=== PATIENT | female | born 1940 | race Caucasian/White ===

== ENCOUNTER 2017-02-12 21:13 | Observation (INO) ==
[2017-02-12 23:23] LABS: Basophils % 0.5 %; Eosinophils # 0.2 K/mcL (0.0-0.6); Eosinophils % 2.4 %; Hemoglobin 14.4 g/dL (11.5-15.4); Immature Granulocytes % 0.3 % (0-4); Immature Platelets 2.9 % (1.1-6.1); Lymphocytes # 2.8 K/mcL (0.6-4.6); Lymphocytes % 44.6 %; Mean Corpuscular HGB Conc 33.5 g/dL (31.6-35.5); Mean Corpuscular Hemoglobin 31.1 pg (28.0-33.3); Mean Corpuscular Volume 92.9 fL (83.0-100.0); Mean Platelet Volume 9.4 fL (9.4-12.4); Monocytes # 0.6 K/mcL (0.0-1.3); Neutrophils # 2.7 K/mcL (1.6-8.9); Platelet Count 254 K/mcL (140-400); Red Blood Count 4.63 M/mcL (3.82-4.97); Red Cell Distribution Width 12.2 % (11.5-14.5); Segmented Neutrophils % 43.2 %
[2017-02-12 23:34] LABS: BUN/Creatinine Ratio 15 (6-26); Blood Urea Nitrogen 12 mg/dL (7-20); Calcium 10.1 mg/dL (8.6-10.8); Carbon Dioxide 26 mEq/L (19-29); Chloride 103 mEq/L (98-109); Glucose 109 mg/dL (70-99); Osmolality,Calculated 286 (280-300); Potassium 3.9 mEq/L (3.5-4.5); Sodium 138 mEq/L (136-145); eGFR For African Americans > 60 (> 60); eGFR For Non-African Americans > 60 (> 60)
[2017-02-12] MEDS ORDERED: Ondansetron 4 MG/2 ML VIAL IVP ONE (23:35)
[2017-02-12] MEDS ORDERED: 0.9 % Sodium Chloride 1,000 ML IVC ONE (23:36)
--- NOTE | 2017-02-12 23:41 | Emergency Department Note ---
Disposition Clinical Impression: Chest pain Qualifiers: Chest pain type: unspecified Qualified Code(s): R07.9 - Chest pain, unspecified Disposition: Admitted As Inpatient Condition: Fair Referrals: Elton Bethea MD [Primary Care Provider] - Forms: ED Satisfaction Letter Time of Disposition: 01:38 Chest Pain HPI - General Chief Complaint: ED Chest Pain Stated Complaint: chest pain has pace maker Time Seen by Provider: 02/12/17 22:59 Source: patient Limitations: no limitations Vital Signs Reviewed: Yes Nursing Notes Reviewed: Yes - History of Present Illness HPI Narrative: Alert and oriented 76-year-old female presents to the emergency department for a chief complaint of chest pain, palpitations, and headache. The patient states that symptoms began at approximately 11:30 this morning. She states that symptoms began with a headache and dizziness that she describes as her typical vertiginous episodes. She states that she laid down in bed, and woke up at approximately 2:00 this afternoon, however symptoms persisted. She states that at the time of symptom onset, she also experienced episodes of palpitations, and intermittent left-sided chest pain that she describes as sharp in nature. She states this chest pain occurs at rest. During the time my exam, she is currently pain-free. He complains of associated nausea, however denies any vomiting. She denies any fever or cough. She denies any shortness of breath. She states a history of paroxysmal SVT for which she has underwent 2 ablations and has had a pacemaker placed. She states a history of migraine headaches. She states that originally, her current headache felt as her normal migraines, however she is concerned that it did not alleviate after awaking from sleep. She denies this being the worst headache of her life or has having a thunderclap type onset. She states that her headache is made worsened by loud noises. Pt complaint: chest pain Onset (ago): hour(s) (Approximately 11:30 this morning) Duration: intermittent Onset: during rest Pain Location: left chest Severity scale (1-10): 0 Quality: aching Improves with: nothing Worsens with: nothing Associated symptoms: Reports: nausea, palpitations Treatments prior to arrival chest pain: none - Related Data Home Medications Medication Instructions Recorded Confirmed Albuterol Sulfate [Albuterol 2 puff IH Q6H PRN 11/25/16 02/08/17 Inhaler] Alpha Lipoic Acid 200 mg PO DAILY 11/25/16 02/08/17 Calcium Carbonate [Calcium] 1,000 mg PO BID 11/25/16 02/08/17 Cholecalciferol (D-3) [Vitamin D] 2,000 unit PO DAILY 11/25/16 02/08/17 Docusate Sodium [Stool Softener] 100 mg PO BID 11/25/16 02/08/17 Lisinopril 2.5 mg PO DAILY 11/25/16 02/08/17 [place]-3 Fatty Acids [Fish Oil] 1,000 mg PO TID 11/25/16 02/08/17 Vitamin B Complex [B Complex] 1 each PO DAILY 11/25/16 02/08/17 Warfarin [Coumadin] 7.5 mg PO 1800 11/25/16 02/08/17 Acetaminophen [Tylenol] 1,000 mg PO Q6HR PRN 01/18/17 02/08/17 Phytonadione [Vitamin K] 100 mcg PO DAILY 01/18/17 02/08/17 Allergies Allergy/AdvReac Type Severity Reaction Status Date / Time droperidol [From Inapsine] AdvReac Anxiety Verified 02/12/17 21:28 Zxvgqtk-Ogg-Ahm Reductase AdvReac Dizziness Verified 02/12/17 21:28 Inhibitor [Statins] beta blockers AdvReac Severe Hypotension Uncoded 02/12/17 21:28 Constitutional: Denies: fever, chills, weakness, weight change Eyes: Denies: eye pain, eye discharge, vision change ENT ED: Denies: ear pain, throat pain, dental pain, hearing loss, epistaxis, congestion, dysphagia Cardiovascular: Reports: as per HPI, chest pain, palpitations. Denies: dyspnea on exertion, edema, syncope Respiratory: Denies: cough, dyspnea, wheezes, hemoptysis, stridor Gastrointestinal: Reports: as per HPI, nausea. Denies: abdominal pain, vomiting , diarrhea, constipation, hematemesis, melena, hematochezia Genitourinary: Denies: dysuria, frequency, hematuria, discharge Musculoskeletal: Denies: back pain, neck pain, arthralgia, myalgia Integumentary: Denies: rash, abrasion, lesions Neurological: Reports: as per HPI, headache, other (Dizziness). Denies: weakness, numbness, paresthesias, confusion, abnormal gait, vertigo Psychiatric: Denies: anxiety, depression, suicidal thoughts, homicidal thoughts , auditory hallucinations, visual hallucinations Endocrine: Denies: fatigue Hematological/Lymphatic: Denies: easy bleeding, easy bruising Allergic/Immunologic: Denies: facial swelling, urticaria Chest Pain PMH - Past Medical History Medical history: Reports: cancer, cardiomyopathy, GERD, hyperlipidemia, hypertension, other Psychiatric history: Reports: anxiety OIM CONSULTANT history: Reports: no OIM CONSULTANT history - Social History Smoking Status: Never smoker Alcohol use: Reports: rarely Drug use: Reports: none Physical Exam - General Limitations: no limitations General appearance: alert - Head Head exam: atraumatic, normocephalic, normal inspection - Eye Eye exam: Present: normal appearance, PERRL, EOMI. Absent: nystagmus - ENT ENT exam: mucous membranes moist - Neck Neck exam: Present: normal inspection, full ROM, trachea midline. Absent: lymphadenopathy - Chest Chest inspection: Present: normal inspection, symmetric chest wall rise - Respiratory Respiratory exam: Present: normal lung sounds bilaterally. Absent: respiratory distress, wheezes, stridor, accessory muscle use, prolonged expiratory phase - Cardiovascular Cardiovascular exam: Present: regular rate, normal rhythm, normal heart sounds - Abdominal Exam Abdominal exam: Present: soft, Non-Tender, normal bowel sounds. Absent: tenderness, distention, guarding, rebound, rigidity - Extremities Exam Extremities exam: Present: normal inspection, full ROM. Absent: tenderness, pedal edema - Expanded Neurological Exam Patient oriented to: Present: person, place, time Speech: Present: fluid speech Cranial nerves: EOM function (II, III, IV, ): Normal, facial sensation (V): Normal, facial palsy (VII): Normal, spinal accessory function (XI): Normal, tongue deviation (XII): Normal Motor strength - LUE: 5/5 Motor strength - RUE: 5/5 Motor strength - LLE: 5/5 Motor strength - RLE: 5/5 Upper motor neuron exam: iwona neglect: Absent bilaterally, pronator drift: Absent bilaterally, sensory extinction: Absent bilaterally Sensory exam upper extremity: light touch: Normal Sensory exam lower extremity: light touch: Normal, 2 point discrimination: Normal Coma Scale Eye Opening: Spontaneous Coma Scale Motor Response: Obeys Commands Coma Scale Verbal Response: Oriented Coma Scale Total: 15 - Psychiatric Psychiatric exam: Present: normal affect, normal mood - Skin Skin exam: Present: warm, dry, intact, normal color. Absent: rash, cyanosis, diaphoresis, erythema, pallor, mottled Course Course Narrative: I have discussed this patient's case with Dr. Amezquita. Dr. Amezquita has had a face- to-face evaluation with the patient and recommends admission to the hospitalist service for further evaluation of her left-sided chest pain. The patient has been made aware of this plan and is in agreement. 0137: I spoke with Dr. Durand. Dr. Durand accepts the patient for admission under the hospitalist service. Vital Signs Temperature 97.5 F L 02/12/17 21:28 Pulse Rate 71 02/12/17 21:28 Respiratory Rate 20 02/12/17 21:28 Blood Pressure 122/78 02/12/17 21:28 O2 Sat by Pulse Oximetry 98 02/12/17 21:28 Temperature 97.5 F L 02/12/17 21:28 Pulse Rate 76 02/12/17 23:11 Respiratory Rate 18 02/12/17 23:11 Blood Pressure 139/86 02/12/17 23:11 O2 Sat by Pulse Oximetry 97 02/12/17 23:11 Oxygen Delivery Oxygen Delivery Room Air Chest Pain - MDM Narrative Medical decision making narrative: The patient refuses the administration of aspirin, stating that she is currently on warfarin, and does not take aspirin-containing products. - Medical Records Medical records reviewed: Yes I reviewed the patient's medical records. - Lab Data Lab results reviewed: Yes I reviewed the patient's lab results. Lab results narrative: Laboratory Last Values WBC 6.2 K/mcL (4.3-11.1) 02/12/17 23:15 RBC 4.63 M/mcL (3.82-4.97) 02/12/17 23:15 Hgb 14.4 g/dL (11.5-15.4) 02/12/17 23:15 Hct 43.0 % (35.3-44.9) 02/12/17 23:15 MCV 92.9 fL (83.0-100.0) 02/12/17 23:15 MCH 31.1 pg (28.0-33.3) 02/12/17 23:15 MCHC 33.5 g/dL (31.6-35.5) 02/12/17 23:15 RDW 12.2 % (11.5-14.5) 02/12/17 23:15 Plt Count 254 K/mcL (140-400) 02/12/17 23:15 MPV 9.4 fL (9.4-12.4) 02/12/17 23:15 Immature Gran % 0.3 % (0-4) 02/12/17 23:15 Seg Neutrophils % 43.2 % 02/12/17 23:15 Lymphocytes % 44.6 % 02/12/17 23:15 Monocytes % 9.0 % 02/12/17 23:15 Eosinophils % 2.4 % 02/12/17 23:15 Basophils % 0.5 % 02/12/17 23:15 Neutrophils # 2.7 K/mcL (1.6-8.9) 02/12/17 23:15 Lymphocytes # 2.8 K/mcL (0.6-4.6) 02/12/17 23:15 Monocytes # 0.6 K/mcL (0.0-1.3) 02/12/17 23:15 Eosinophils # 0.2 K/mcL (0.0-0.6) 02/12/17 23:15 Basophils # 0.0 K/mcL (0.0-0.2) 02/12/17 23:15 Immature Plt Fraction 2.9 % (1.1-6.1) 02/12/17 23:15 PT 24.2 Seconds (9.4-12.1) H 02/12/17 23:15 INR 2.2 02/12/17 23:15 APTT 45.1 Seconds (26.0-36.0) H 02/12/17 23:15 Sodium 138 mEq/L (136-145) 02/12/17 23:15 Potassium 3.9 mEq/L (3.5-4.5) 02/12/17 23:15 Chloride 103 mEq/L (98-109) 02/12/17 23:15 Carbon Dioxide 26 mEq/L (19-29) 02/12/17 23:15 BUN 12 mg/dL (7-20) 02/12/17 23:15 Creatinine 0.81 mg/dL (0.57-1.11) 02/12/17 23:15 Est GFR ( Amer) > 60 (> 60) 02/12/17 23:15 Est GFR (Non-Af Amer) > 60 (> 60) 02/12/17 23:15 BUN/Creatinine Ratio 15 (6-26) 02/12/17 23:15 Glucose 109 mg/dL (70-99) H 02/12/17 23:15 Calculated Osmolality 286 (280-300) 02/12/17 23:15 Calcium 10.1 mg/dL (8.6-10.8) 02/12/17 23:15 Troponin I 0.00 ng/mL (0-0.03) 02/12/17 23:15 Result diagrams: 02/12/17 23:15 02/12/17 23:15 Lab Results 02/12/17 02/12/17 02/12/17 Range/Units 23:15 23:15 23:15 WBC 6.2 (4.3-11.1) K/mcL RBC 4.63 (3.82-4.97) M/mcL Hgb 14.4 (11.5-15.4) g/dL Hct 43.0 (35.3-44.9) % MCV 92.9 (83.0-100.0) fL MCH 31.1 (28.0-33.3) pg MCHC 33.5 (31.6-35.5) g/dL RDW 12.2 (11.5-14.5) % Plt Count 254 (140-400) K/mcL MPV 9.4 (9.4-12.4) fL Immature Gran % 0.3 (0-4) % Seg Neutrophils % 43.2 % Lymphocytes % 44.6 % Monocytes % 9.0 % Eosinophils % 2.4 % Basophils % 0.5 % Neutrophils # 2.7 (1.6-8.9) K/mcL Lymphocytes # 2.8 (0.6-4.6) K/mcL Monocytes # 0.6 (0.0-1.3) K/mcL Eosinophils # 0.2 (0.0-0.6) K/mcL Basophils # 0.0 (0.0-0.2) K/mcL Immature Plt Fraction 2.9 (1.1-6.1) % PT (9.4-12.1) Seconds INR APTT (26.0-36.0) Seconds Sodium 138 (136-145) mEq/L Potassium 3.9 (3.5-4.5) mEq/L Chloride 103 (98-109) mEq/L Carbon Dioxide 26 (19-29) mEq/L BUN 12 (7-20) mg/dL Creatinine 0.81 (0.57-1.11) mg/dL Est GFR ( Amer) > 60 (> 60) Est GFR (Non-Af Amer) > 60 (> 60) BUN/Creatinine Ratio 15 (6-26) Glucose 109 H (70-99) mg/dL Calculated Osmolality 286 (280-300) Calcium 10.1 (8.6-10.8) mg/dL Troponin I 0.00 (0-0.03) ng/mL 02/12/17 Range/Units 23:15 WBC (4.3-11.1) K/mcL RBC (3.82-4.97) M/mcL Hgb (11.5-15.4) g/dL Hct (35.3-44.9) % MCV (83.0-100.0) fL MCH (28.0-33.3) pg MCHC (31.6-35.5) g/dL RDW (11.5-14.5) % Plt Count (140-400) K/mcL MPV (9.4-12.4) fL Immature Gran % (0-4) % Seg Neutrophils % % Lymphocytes % % Monocytes % % Eosinophils % % Basophils % % Neutrophils # (1.6-8.9) K/mcL Lymphocytes # (0.6-4.6) K/mcL Monocytes # (0.0-1.3) K/mcL Eosinophils # (0.0-0.6) K/mcL Basophils # (0.0-0.2) K/mcL Immature Plt Fraction (1.1-6.1) % PT 24.2 H (9.4-12.1) Seconds INR 2.2 APTT 45.1 H (26.0-36.0) Seconds Sodium (136-145) mEq/L Potassium (3.5-4.5) mEq/L Chloride (98-109) mEq/L Carbon Dioxide (19-29) mEq/L BUN (7-20) mg/dL Creatinine (0.57-1.11) mg/dL Est GFR ( Amer) (> 60) Est GFR (Non-Af Amer) (> 60) BUN/Creatinine Ratio (6-26) Glucose (70-99) mg/dL Calculated Osmolality (280-300) Calcium (8.6-10.8) mg/dL Troponin I (0-0.03) ng/mL - Radiology Data Radiology results reviewed: Yes I reviewed the patient's radiology results. Chest X-Ray 02/12/17 21:52 IMPRESSION: 1. No acute cardiopulmonary disease. D/ / Jn Echevarria MD / Jn Echevarria MD Interpreting Provider: Jn Echevarria MD - EKG Data EKG attestation: Yes I reviewed and interpreted this EKG. EKG results narrative: EKG reviewed by Dr. Claire Amezquita as well. EKG shows a right bundle branch block with a ventricular rate of 70 bpm. No ectopy noted. No STEMI. Heart Score - Score History: Moderately Suspicious EKG: Non Specific repolarisation Disturbance Age: Greater than 65 Risk Factors: Equal/Greater than 3 risk factor or history of atherosclerotic disease Troponin: Less than normal limit HEART Score Total: 6 Attestation Statement - Attestation Attestation: I personally interviewed and examined this patient and my medical decision- making was reviewed with the VANDANA. I agree with the documented findings, disposition and treatment plan as described in the documentation. Patient is a 76-year-old white female who presents to the emergency department with complaints of left-sided nonradiating chest pain. Patient refused aspirin on arrival. EKG showed no changes compared to prior EKG in the system, acute findings. Paced rhythm. Patient on my evaluation is chest pain-free with stable vital signs at this time. Patient's exam is unremarkable overall, agree with documentation by VANDANA. Chest x-ray as well as labs including initial troponin are all within normal limits. Recommend admission based on patient's heart or any concerning symptoms for further evaluation of chest pain. Patient has remained hemodynamic stable while in the emergency department and has had no recurrence of her chest discomfort.
[2017-02-12 23:47] LABS: INR 2.2; Prothrombin Time 24.2 Seconds (9.4-12.1)
[2017-02-12 23:50] LABS: Activated Partial Thrombo Time 45.1 Seconds (26.0-36.0)
--- NOTE | 2017-02-13 05:36 | Internal Med History&Physical ---
<Laura Rangel Linda - Last Filed: 02/13/17 19:41> Date of Encounter: 02/13/17 Time of Encounter: 05:24 Assessment and Plan (1) Chest pain Status: Acute atypical in nature,spontaneous resolution of symptoms unclear etiology, possibly due to transient vasospasm EKG:RBBB CXR: no evidence of acute cardiopulmonary process trop 0.0, will repeat Na, K, Ca all wnl check Mg [facility] cardiology pt Qualifiers: Chest pain type: unspecified Qualified Code(s): R07.9 - Chest pain, unspecified (2) Paroxysmal a-fib Status: Chronic (3) CHF (congestive heart failure) Status: Acute chemotherapy induced Qualifiers: Congestive heart failure type: unspecified congestive heart failure type Congestive heart failure chronicity: unspecified congestive heart failure chronicity Qualified Code(s): I50.9 - Heart failure, unspecified (4) History of colon cancer Status: Chronic (5) History of uterine cancer Status: Chronic (6) History of left breast cancer Status: Chronic Internal Medicine - H&P: HPI Chief complaint: headache and chest pain Admitted From: Home Plans for Post Hospital Care: Home History of present illness: Ms. Pollock is a 76 year old female c/o headache with chest pain. PMHx paroxysmal afib with ablation,pacemaker, breast cancer, colon cancer, chemo induced CHF, HLD< HTN, GERD. Pt states generalized throbbing migraine headache with visual aura and nausea started around noon on 02/12. At this time she laid down in her room with lights and sounds off for about two hours. Pt states that she gets frequent migraine headaches and this usually helps. She does not like to take medications for them. This time when pt got up here headache had not improved and was now having a sharp throbbing left sided chest pain that radiated to her L shoulder and left side of her neck. Pt stated that this pain occurs when she gets heart palpitations associated with her Afib. This time chest pain lasted longer then usual and did not improve with rest. Pt states that headache and chest pain have resolved and she is currently asymptomatic. Pt denies current headache, change in vision, CP, palpitation, SOB, numbness/ tingling, loss of function. Past Med Surg Social Fam HX - Past Medical History Medical history: asthma, atrial fibrillation, cancer (uterine, breast, colon), cardiomyopathy, CHF, GERD, hyperlipidemia, hypertension, migraine, other Psychiatric history: anxiety - Past Surgical History Surgical History: appendectomy, colectomy, pacemaker/AICD, EMMANUEL/BSO - Social History Smoking Status: Never smoker Smokeless Tobacco Status: No Alcohol use: rarely Drug use: none Occupational status: retired Current living situation: Home - Family History Mother Living Status: Hx Family Cardiac Disorders: Yes (HTN) Hx Family Neurologic Disorders: Yes (Stroke) Father Living Status: Hx Family Cardiac Disorders: Yes (HTN) Hx Family Endocrine Disorder: Yes (DM) Sister Living Status: Still Living Hx Family Cancer: Yes (breast cancer) Internal Medicine - H&P: Meds Albuterol Sulfate [Albuterol Inhaler] 2 puff IH Q6H PRN 11/25/16 [History] Alpha Lipoic Acid 200 mg PO DAILY 11/25/16 [History] Calcium Carbonate [Calcium] 1,000 mg PO DAILY 11/25/16 [History] Cholecalciferol (D-3) [Vitamin D] 2,000 unit PO DAILY 11/25/16 [History] Docusate Sodium [Stool Softener] 100 mg PO BID 11/25/16 [History] Lisinopril 2.5 mg PO DAILY 11/25/16 [History] [place]-3 Fatty Acids [Fish Oil] 1,000 mg PO TID 11/25/16 [History] Vitamin B Complex [B Complex] 1 tab PO DAILY 11/25/16 [History] Warfarin [Coumadin] 7.5 mg PO QPM 11/25/16 [History] Acetaminophen [Tylenol] 1,000 mg PO Q6HR PRN 01/18/17 [History] Omeprazole [PriLOSEC] 20 mg PO BIDAC 02/13/17 [History] Allergies droperidol [From Inapsine] Adverse Reaction (Verified 02/12/17 21:28) Anxiety Tlsuxnc-Tob-Ixu Reductase Inhibitor [Statins] Adverse Reaction (Verified 21:28) Dizziness beta blockers Adverse Reaction (Severe, Uncoded 02/12/17 21:28) Hypotension All Systems PM: A 10-system review of systems was performed and is negative for pertinent findings except as documented above in the HPI. - Constitutional Constitutional: no chills, no fever(s), no night sweats - EENT Eyes: no change in vision, no discharge, no pain, no photophobia - Cardiovascular Cardiovascular ROS IM: chest pain, dyspnea, dyspnea on exertion, irregular heart rhythm, lightheadedness, palpitations, no diaphoresis, no edema, no syncope - Respiratory Respiratory: no cough, no dyspnea, no wheezing, no excessive phlegm production - Gastrointestinal Gastrointestinal: nausea, no abdominal pain, no diarrhea, no hematemesis, no hematochezia, no melena, no vomiting - Genitourinary Genitourinary: no change in urinary stream, no dysuria, no flank pain, no hematuria - Musculoskeletal Musculoskeletal ROS IM: no numbness, no tingling - Integumentary Integumentary IM: no rash, no unusual bruising - Neurological Neurological ROS: dizziness, headache(s), no focal weakness, no frequent falls, no memory loss, no numbness, no tingling, no weakness - Constitutional Vitals: Temp Pulse Resp BP Pulse Ox 97.4 F L 71 17 122/72 97 02/13/17 03:53 02/13/17 03:53 02/13/17 03:53 02/13/17 03:53 02/13/17 03:53 General appearance: Present: cooperative, A&O X 3, pleasant, no acute distress, answers questions appropriately - Head Head exam: Present: atraumatic, normocephalic - Eye Eye exam: Present: PERRL, conjuntiva pink, sclera anicteric Pupils: Present: PERRL - ENT ENT exam: Present: mucous membranes moist - Neck Neck exam general surgery: Present: supple, trachea midline. Absent: lymphadenopathy - Respiratory Respiratory exam: Present: CTAB. Absent: accessory muscle use, rales, rhonchi, wheezes - Cardiovascular Cardiovascular exam: Present: RRR, +S1, +S2. Absent: diastolic murmur, gallop, rubs, systolic murmur - GI/Abdominal GI/Abdominal exam: Present: normal bowel sounds, soft, no peritoneal signs. Absent: distended, tenderness - Extremities Exam Extremities exam: Present: normal capillary refill, warm, radial pulses palpable and symetrical. Absent: calf tenderness, cyanotic, pedal edema, tenderness - Neurological Exam Neurological exam: Present: CN II-XII intact, oriented X3, no focal deficits. Absent: facial droop, speech deficit - Psychiatric Psychiatric exam: Present: normal affect, normal mood Internal Med - H&P Results - Labs CBC & Chem 7: 02/12/17 23:15 02/12/17 23:15 - Attending Attestation Dr. Abhijit IZQUIERDO <Chava Lacey Antwan - Last Filed: 02/14/17 02:14> Internal Medicine - H&P: HPI History of present illness: Ms. Pollock is a 76 year old female All Systems PM: A 10-system review of systems was performed and is negative for pertinent findings except as documented above in the HPI. - Constitutional Vitals: Temp Pulse Resp BP Pulse Ox 98.8 F 72 16 125/78 97 02/13/17 11:22 02/13/17 11:22 02/13/17 11:22 02/13/17 11:22 02/13/17 11:22 Internal Med - H&P Results - Labs CBC & Chem 7: 02/12/17 23:15 02/12/17 23:15 Labs: Cardiac Enzymes 02/13/17 02/13/17 Range/Units 06:55 11:48 Troponin I 0.01 0.01 (0-0.03) ng/mL - Attending Attestation I performed history and physical examination of the patient and discussed management with the resident. I reviewed the resident note and agree with the documentation findings and plan of care. 76 Y/F with headache / migraine and chest pain (which the pt thinks is related to dysrhythmia). No CP at my evaluation. No exertional CP. Physically active. O/ E: Cardiac: RRR; lungs; CTA. EKG: RBBB; No acute ischemic changes. A/P: Possible transient vasospasm. Trend troponins. Cardiology consult.
[2017-02-13 11:27] VITALS: BP 125/78
--- NOTE | 2017-02-13 14:22 | Event Note ---
Date of Encounter: 02/13/17 Time of Encounter: 14:00 - Cardiology Event Note Cardiology consulted for device interrogation. Re: dizziness, headache [employer]onic dual chamber PPM. Last check: September 04, 2016 All lead measurements within range of expected, lead trends stable, battery good. 2 ventricular high rates (5 seconds)--last on December 15, 2016. Total atrial pacing 89% Total ventricular pacing <1% Device is functioning as programmed. Reviewed device check with Dr. Harrington. Nothing to account for patient's symptoms noted on device check completed this afternoon. Communicated with requesting physician, Dr. Ruiz. .
--- NOTE | 2017-02-13 14:28 | Discharge Summary ---
Date of Encounter: 02/13/17 Time of Encounter: 14:26 - Discharge Medications Home Medications: Albuterol Sulfate [Albuterol Inhaler] 2 puff IH Q6H PRN 11/25/16 [History] Alpha Lipoic Acid 200 mg PO DAILY 11/25/16 [History] Calcium Carbonate [Calcium] 1,000 mg PO DAILY 11/25/16 [History] Cholecalciferol (D-3) [Vitamin D] 2,000 unit PO DAILY 11/25/16 [History] Docusate Sodium [Stool Softener] 100 mg PO BID 11/25/16 [History] Lisinopril 2.5 mg PO DAILY 11/25/16 [History] Ramona-3 Fatty Acids [Fish Oil] 1,000 mg PO TID 11/25/16 [History] Vitamin B Complex [B Complex] 1 tab PO DAILY 11/25/16 [History] Warfarin [Coumadin] 7.5 mg PO QPM 11/25/16 [History] Acetaminophen [Tylenol] 1,000 mg PO Q6HR PRN 01/18/17 [History] Omeprazole [PriLOSEC] 20 mg PO BIDAC 02/13/17 [History] Allergies/Adverse Reactions: Allergies droperidol [From Inapsine] Adverse Reaction (Verified 02/12/17 21:28) Anxiety [id number] Reductase Inhibitor [Statins] Adverse Reaction (Verified 21:28) Dizziness beta blockers Adverse Reaction (Severe, Uncoded 02/12/17 21:28) Hypotension Date of admission: 02/13/17 03:07 Primary care physician: Elton Bethea MD Consults: 02/13/17 13:34 Consult to Physician [CONS] Routine Consulting Provider: Cody Harrington Reason for Consult: PPM interrogation Time Notified: 13:35 Call Completed: Yes - Patient Status Disposition: Home, Self-Care Condition: Fair Functional capacity at discharge: independent ambulation Overall status at discharge: patient is back to baseline - Discharge Instructions Follow Up With: Elton Bethea MD [Primary Care Provider] - - Diet and Activity Activity: increase activity as tolerated Diet: advance to your usual diet, low fat, low cholesterol, low salt diet Hospital course: Ms. Pollock is a 76 year old female - Time Spent with Patient Total time spent providing and/or coordinating discharge services: - Constitutional Vitals: Temp Pulse Resp BP Pulse Ox 98.8 F 72 16 125/78 97 02/13/17 11:22 02/13/17 11:22 02/13/17 11:22 02/13/17 11:22 02/13/17 11:22 General appearance: Present: cooperative, A&O X 3, pleasant, no acute distress, answers questions appropriately - Respiratory Respiratory exam: Present: CTAB. Absent: accessory muscle use, rales, rhonchi, wheezes - Cardiovascular Cardiovascular exam: Present: RRR, +S1, +S2. Absent: diastolic murmur, gallop, rubs, systolic murmur
--- NOTE | 2017-02-13 16:00 | Electrocardiograph Report ---
[address] [place], [place] [address] Test Date: 2017-02-12 Pat Name: Ena Pollock Department: 102 Room: 2NE26 Gender: F Product Development Technician: AMY : 1940 Requested By: Winnie Taylor Order Number: [id number] Reading MD: Edmar Norwood MD Measurements Intervals [place] Rate: 70 P: 243 VA: 221 QRS: 62 QRSD: 140 T: 42 QT: 401 QTc: 422 Interpretive Statements ELECTRONIC ATRIAL PACEMAKER RIGHT BUNDLE BRANCH BLOCK Electronically Signed On 02-13-2017 15:58:36 EDT by Emdar Norwood MD
[2017-02-13] MEDS ORDERED: *HR* Warfarin 7.5 MG TABLET PO SCH (18:00)
== END 2017-02-13 17:30 | disposition home or self-care (01) ==
LOC: 2NENU 21:13 → EMEROO 21:13 → 2NENU 02-13 03:16
PROVIDERS: ADMIT Family Medicine; ATTEND Family Medicine